=== PATIENT | female | born 1990 | race Caucasian/White ===

== ENCOUNTER → 2021-06-27 14:14 | Outpatient (CLI) | payer OTHER, SELFPAY ==
--- NOTE | 2021-06-27 14:16 | DI.RAD.S_ITS ---
PROCEDURE: XR KNEE RT 3V INDICATIONS: RIGHT KNEE PAIN TECHNIQUE: Three views of the right knee including a bilateral AP weightbearing view of both knees. COMPARISON: None. FINDINGS: Bones: No fractures or dislocations. There is minimal narrowing in the medial compartments bilaterally. There is slight lateral tilt of the right patella with mild narrowing in the patellofemoral compartment laterally. No suspicious bony lesions. Soft tissues: No right joint effusion. No suspicious soft tissue calcifications. IMPRESSION: 1. Minimal joint space narrowing in the medial compartments bilaterally. 2. Slight lateral tilt of the patella with mild narrowing in the right lateral patellofemoral compartment. Dictated by: Juvencio Roberts M.D. on 06/27/2021 at 17:13 Approved by: Juvencio Roberts M.D. on 06/27/2021 at 17:14
== END ==
PROVIDERS: PCP Family Medicine; Referring Provider Physical Medicine & Rehabilitation; Visit Provider Physical Medicine & Rehabilitation
DX: M67.961 Unspecified disorder of synovium and tendon, right lower leg (principal); M25.561 Pain in right knee
CPT/HCPCS: 73562

== ENCOUNTER → 2021-12-23 07:35 | Outpatient (CLI) | payer OTHER, SELFPAY ==
--- NOTE | 2021-12-23 07:36 | DI.RAD.S_ITS ---
PROCEDURE: XR KNEE RT 3V INDICATIONS: RIGHT KNEE PAIN TECHNIQUE: 3 views of the knee were acquired. COMPARISON: [facility], , XR KNEE RT 3V, 06/27/2021, 14:24. FINDINGS: Bones: No fractures or dislocations. Minimal joint space narrowing. No osteophytes appreciated. No suspicious bony lesions. Soft tissues: No joint effusion. No suspicious soft tissue calcifications. IMPRESSION: Minimal degenerative change appreciated. Dictated by: Gabriel Nicole M.D. on 12/23/2021 at 11:30 Approved by: Gabriel Nicole M.D. on 12/23/2021 at 11:31
--- NOTE | 2021-12-23 07:36 | DI.RAD.S_ITS ---
PROCEDURE: XR KNEE LT 3V INDICATIONS: left knee pain TECHNIQUE: 3 views of the knee were acquired. COMPARISON: [facility], CR, XR KNEE RT 3V, 06/27/2021, 14:24. FINDINGS: Bones: No fractures or dislocations. Minimal joint space narrowing in the medial compartment. No suspicious bony lesions. Soft tissues: No joint effusion. No suspicious soft tissue calcifications. IMPRESSION: Minimal left knee DJD. Dictated by: Gabriel Nicole M.D. on 12/23/2021 at 11:31 Approved by: Gabriel Nicole M.D. on 12/23/2021 at 11:32
== END ==
PROVIDERS: PCP Family Medicine; Referring Provider Physical Medicine & Rehabilitation; Visit Provider Physical Medicine & Rehabilitation
DX: M25.562 Pain in left knee (principal); M25.561 Pain in right knee
CPT/HCPCS: 73562